=== PATIENT | male | born 1965 | race Caucasian/White ===

== ENCOUNTER → 2022-11-02 13:37 | Outpatient (CLI) | payer OTHER, SELFPAY ==
--- NOTE | 2022-11-02 | DI.ECHO.S_ITS ---
[place] [facility]---------+ [facility] +---------+ : : [address] : [address] [address] : : : : [id number] : : : : Phone: [phone]+ Echocardiogram Report + + :Name: GURPREET HARDING Study Date: 11/02/2022 Height: 77 in : :[facility] ReadingLocation: Weight: 240 lb : : Gender: Male BSA: 2.4 m2 : :: 1965 Age: 56 yrs BP: 137/73 mmHg: :Reason For Study: ISCHEMIC HEART DISEASE : :Ordering Physician: KWAN, : :PATY Performed By: Hilaria White : :Referring: PATY BOWENS : + + Interpretation Summary The left ventricle is normal in size and wall thickness. The ejection fraction is estimated to be 55-60%. The right ventricle is normal in size and function. There is mild to moderate aortic regurgitation. The IVC is of normal diameter and collapses greater than 50% with a sniff. This suggests a low right atrial pressure of 3 mm Hg. Procedure: A two-dimensional transthoracic echocardiogram with color flow and Doppler was performed. The study quality was technically adequate. Comparison is made with the echocardiogram of 04/05/2022. The patient was in sinus bradycardia with heart rates between 57-63 bpm during the exam. Left Ventricle: The left ventricle is normal in size and wall thickness. There is no thrombus. The ejection fraction is estimated to be 55-60%. There are no focal wall motion abnormalities. Diastolic parameters suggest probable normal left ventricular diastolic function and normal filling pressures. Right Ventricle: The right ventricle is normal in size and function. Atria: The left atrium is mildly dilated. Right atrial size is normal. There is no Doppler evidence for an interatrial shunt. Mitral Valve: The mitral valve is normal in structure and function. There is no mitral regurgitation noted. Aortic Valve: The aortic valve is trileaflet. The aortic valve opens well. There is no aortic valve stenosis. There is mild to moderate aortic regurgitation. Tricuspid Valve: The tricuspid valve is normal in structure and function. There is trace tricuspid regurgitation. Pulmonary artery pressures cannot be estimated because of the lack of a measurable TR jet velocity. Pulmonic Valve: The pulmonic valve leaflets are thin and pliable; valve motion is normal. There is trace pulmonic regurgitation. Great Vessels: The aortic root is normal size. The dimensions of the ascending aorta are normal. The IVC is of normal diameter and collapses greater than 50% with a sniff. This suggests a low right atrial pressure of 3 mm Hg. Pericardium/ Pleura There is no pericardial effusion. There is no pleural effusion. MMode/2D Measurements & Calculations LVIDd: 5.2 cm LVOT diam: 2.7 cm LVIDs: 3.8 cm Ao root diam: 3.6 cm FS: 28.1 % asc Aorta Diam: 3.2 cm IVSd: 1.0 cm Ao Arch Diam (Prox Trans): 2.9 cm LVPWd: 0.87 cm LV alonso. diameter/BSA (cm/m^2): 2.2 LV sys. diameter/BSA (cm/m^2): 1.6 LA A2 area: 25.9 cm2 RA long axis: 6.0 cm LA A4 area: 24.0 cm2 RA area: 22.2 cm2 LA length (vol): 6.3 cm RA vol: 70.1 ml LA vol: 83.8 ml RA : 29.0 ml/m2 LA vol index: 34.7 ml/m2 IVC diam: 1.4 cm RVD1 (basal): 4.0 cm RVD2 (mid): 3.4 cm TAPSE: 2.8 cm Doppler Measurements & Calculations Ao V2 max: 149.7 cm/sec LVOT Max Devante: 105.3 cm/sec Ao V2 mean: 106.6 cm/sec LV V1 max P.4 mmHg Ao max P.0 mmHg LV V1 VTI: 22.2 cm Ao mean P.0 mmHg SUKHDEEP(I,D): 4.3 cm2 Ao V2 VTI: 28.8 cm SUKHDEEP(V,D): 4.0 cm2 sev ratio: 0.77 SUKHDEEP indexed to BSA (cm^2/m^2): 1.8 AI P1/2t: 921.9 msec AI dec slope: 150.0 cm/sec2 MV E max devante: 58.1 cm/sec PA V2 max: 104.1 cm/sec MV A max devante: 51.9 cm/sec PA V2 mean: 72.0 cm/sec MV E/A: 1.1 PA mean P.3 mmHg Med Peak E' Devante: 9.8 cm/sec PA pr(Accel): 10.5 mmHg E/E' med: 5.9 Lat Peak E' Devante: 11.4 cm/sec E/E' lat: 5.1 E/e' average: 5.5 MV dec time: 0.21 sec SV(LVOT): 124.8 ml Reading Physician:05:07 PM
== END ==
PROVIDERS: Referring Provider Chiropractor; Visit Provider Chiropractor
DX: I35.1 Nonrheumatic aortic (valve) insufficiency (principal); I25.9 Chronic ischemic heart disease, unspecified
CPT/HCPCS: 93306